=== PATIENT | female | born 1955 | race Caucasian/White ===

== ENCOUNTER → 2018-04-01 | Outpatient (CLI) | payer OTHER | LOC: M.ULTRA 11:27 | DX: E04.2 Nontoxic multinodular goiter (principal) ==

== ENCOUNTER → 2018-04-10 | Outpatient (CLI) | payer OTHER ==
--- NOTE | 2018-04-13 15:06 | PATH ---
[address] [address] PATHOLOGY RPT PROCEDURE Name: VETO MOORE Room: [facility]#: [id number] Admission: 04/10/18 Date of : 57 Discharge: Report #: [id number] Path Case #: [id number] Note [facility] Accession Number: [id number] TESTS RESULT FLAG UNITS REF RANGE LAB Clinician Provided Cytology Information No. of containers..01 Other (Miscellaneous) Source: THYROID DIAGNOSIS: LT THYROID NEGATIVE FOR MALIGNANT CELLS. B[place] CATEGORY II. SPECIMEN CONSISTS OF BENIGN FOLLICULAR CELLS, HEMOSIDERIN-LADEN MACROPHAGES, COLLOID, AND BLOOD. THIS PATTERN IS CONSISTENT WITH A BENIGN FOLLICULAR NODULE. THIS INTERPRETATION INCLUDES EVALUATION OF A CELL BLOCK. Pathologist ICD10: 02 E04.1 Signed out by: 02 Chuy Burleson MD, Pathologist NPI- [id number] Performed by: Queta Potts, Multigraph Operator ([facility]) Gross description: 01 15ML, DARK RED, CLEAR /LCS FLAG LEGEND: L-Low Normal,H-High Normal,LL-Alert Low,HH-Alert High <-Panic Low,>-Panic High,A-Abnormal,AA-Critical Abnormal Performed at: [address] [id number] Alexandro Reeves MD, 02 [facility] [address] [place] [address] Chuy Burleson MD, A courtesy copy of this report has been sent to [phone]. Performed at: [address], [place], [place] [id number] MD Alexandro Reeves MD Phone: [phone]
== END ==
LOC: M.ULTRA 08:05
DX: E04.1 Nontoxic single thyroid nodule (principal)

== ENCOUNTER 2019-09-17 21:35 | Emergency (ER) | payer BC ==
[~2019-09-17] VITALS: Ht 167.6 cm; Wt 49.9 kg
[2019-09-18] MEDS ORDERED: AUGMENTIN 500-1 EACH PO (01:25)
[2019-09-18] MEDS ORDERED: ZOFRAN ODT4 MG PO (01:25)
[2019-09-18] MEDS ORDERED: HYDROCODON-ACE1 EAC7 PO (01:25)
[2019-09-18 02:10] VITALS: BP 132/67
== END 2019-09-18 02:10 | disposition home or self-care (01) ==
LOC: M.ERS 21:35
DX: S01.01XA Laceration without foreign body of scalp, initial encounter (principal); S01.112A Laceration without foreign body of left eyelid and periocular area, initial encounter; Z23 Encounter for immunization; W55.01XA Bitten by cat, initial encounter; Y93.89 Activity, other specified; Y92.89 Other specified places as the place of occurrence of the external cause; Y99.8 Other external cause status

== ENCOUNTER → 2019-09-21 | Outpatient (CLI) | payer BC ==
[~2019-09-21] MED LIST: AUGMENTIN 500-1 EACH PO; HYDROCODON-ACE1 EAC7 PO; ZOFRAN ODT4 MG PO
--- NOTE | 2019-09-21 13:44 | NUR ---
ARRIVED AMBULATORY WITH . DENIES ADVERSE REACTION TO PRIOR INJECTION OF SAME. DENIES FEVER IN PAST 24 HOURS. INJECTION COMPLETED AND TOLERATRED WELL. DENIES QUESTIONS OR NEEDS AT DISCHARGE.
== END ==
LOC: M.INFUS 13:00
DX: Z23 Encounter for immunization (principal); Z20.3 Contact with and (suspected) exposure to rabies; W55.01XD Bitten by cat, subsequent encounter

== ENCOUNTER → 2019-09-24 | Outpatient (CLI) | payer BC ==
[2019-09-24 13:05] VITALS: BP 145/82
--- NOTE | 2019-09-24 13:15 | NUR ---
ARRIVED AMBULKATORY. MADE SELF COMFORTABLE. DENEIS ADVERSE REACTION TO PRIOR INJECTION OF SAME. DENIES FEVER. INJECTION COMPLETED AND TOLERTAED WELL. DENEIS QUESTIONS OR NEEDS AT DISCHAGE.
== END ==
LOC: M.INFUS 05:08
DX: Z23 Encounter for immunization (principal); Z20.3 Contact with and (suspected) exposure to rabies; W55.01XD Bitten by cat, subsequent encounter

== ENCOUNTER → 2019-10-01 | Outpatient (CLI) | payer BC ==
[2019-10-01 13:00] VITALS: BP 144/84
--- NOTE | 2019-10-01 14:31 | NUR ---
ARRIVED AMBULATROY. NOTED PT TEMP 99.3, PT REPORT LEFT EYE CAT BITE IS MORE SWOLLEN AND PAINFUL THAN IT HAS BEEN PRIOR. AREA AROUND BITE NOTED TO BE RED AND EDEMATIS. WHEN ASKED PT REPORTS RED DRAINAGE FROM CAT BITE. CALL PLACED TO PT [place]. REPORTED NOTED SYMPTOMS. PT TO LEAVE AFTER RABIES INJECTION AND GO STRAIGHT TO DOCTOR OFFICE. PT UPDATED. VOICED UNDERSTANDING AND AGREED.
== END ==
LOC: M.INFUS 03:32
DX: Z23 Encounter for immunization (principal); Z20.3 Contact with and (suspected) exposure to rabies; W55.01XD Bitten by cat, subsequent encounter

== ENCOUNTER → 2019-10-15 | Outpatient (CLI) | payer BC ==
[2019-10-15 13:08] VITALS: BP 152/83
--- NOTE | 2019-10-15 13:45 | NUR ---
ARRIVED AMBULATORY MADE SELF COMFORTABLE IN RECLINER. DENIES FEVER IN PAST 2 WEEKS. LAST INJECTION COMPLETED AND TOLERATED WELL. DENIES QUESTIONS OR NEEDS AT DISCHARGE.
== END ==
LOC: M.INFUS 04:00
DX: Z23 Encounter for immunization (principal); Z20.3 Contact with and (suspected) exposure to rabies; W55.01XD Bitten by cat, subsequent encounter

== ENCOUNTER → 2021-06-01 | Outpatient (CLI) | payer OTHER | LOC: M.CT 07:41 | PROVIDERS: ATTEND Nurse Practitioner Family | DX: Z13.6 Encounter for screening for cardiovascular disorders (principal) ==